=== PATIENT | male | born 1985 | race African-American/Black ===

== ENCOUNTER 2022-05-03 12:15 | Inpatient (IN) | payer OTHER ==
[2022-05-03 14:11] VITALS: BMI 24.3
[2022-05-03] MEDS ORDERED: LOPERAMIDE HCL 2 MG CAPSULE PO PRN ×2 (18:58→21:09)
[2022-05-03] MEDS ORDERED: ACETAMINOPHEN 325 MG TABLET (FP) PO PRN (18:58)
[2022-05-03] MEDS ORDERED: MAG HYDROX/AL HYDROX/SIMETH 30 ML UNIT-DOSE CUP PO PRN ×2 (18:58→21:09)
[2022-05-03] MEDS ORDERED: MAGNESIUM CITRATE 300 ML BOTTLE PO PRN ×2 (18:58→21:09)
[2022-05-03] MEDS ORDERED: guaiFENesin 200 MG/10 ML 10 ML UNIT-DOSE CUPS PO PRN ×2 (18:58→21:09)
[2022-05-03] MEDS ORDERED: IBUPROFEN 400 MG TABLET (FP) PO PRN (18:58)
[2022-05-03] MEDS ORDERED: hydrOXYzine PAMOATE 25 MG CAPSULE (FP) PO PRN ×2 (18:58→21:09)
[2022-05-03] MEDS ORDERED: MAGNESIUM HYDROX 2400MG/30ML ORAL SUSPENSION 30 ML CUP PO PRN ×2 (18:58→21:09)
[2022-05-03] MEDS ORDERED: P-EPHED 60MG/TRIPROLIDI 2.5MG TABLET PO PRN ×2 (18:58→21:09)
[2022-05-03] MEDS ORDERED: NICOTINE POLACRILEX 2 MG GUM BC PRN (21:09)
[2022-05-03] MEDS ORDERED: MELATONIN 5 MG TABLETS PO SCH (22:00)
[2022-05-03] MEDS ORDERED: THIAMINE HCL 100 MG TABLET (FP) PO SCH (22:00)
[2022-05-04] MEDS ORDERED: TUBERCULIN PPD 5 TU/0.1ML VIAL ID ONE (01:04)
[2022-05-04] MEDS: IBUPROFEN 400 MG TABLET (FP) PO PRN ×2 (06:51→23:34)
[2022-05-04] MEDS ORDERED: PRENATAL VITAMINS W/ FOLIC ACID TABLET (FP) PO SCH (10:00)
[2022-05-04] MEDS ORDERED: DOXYCYCLINE HYCLATE 100 MG CAPSULE PO SCH (10:00)
[2022-05-04] MEDS: DOXYCYCLINE HYCLATE 100 MG CAPSULE PO SCH ×2 (10:48→17:34)
[2022-05-04] MEDS: PRENATAL VITAMINS W/ FOLIC ACID TABLET (FP) PO SCH (10:48)
[2022-05-04] MEDS: NICOTINE 14 MG/24 HOURS TOPICAL PATCH TD SCH (10:49)
[2022-05-04 13:21] LABS: URINE APPEARANCE CLEAR; URINE BILIRUBIN NEGATIVE (NEGATIVE); URINE COLOR YELLOW; URINE GLUCOSE (UA) NEGATIVE (NEGATIVE); URINE KETONE NEGATIVE (NEGATIVE); URINE LEUK ESTERASE NEGATIVE (NEGATIVE); URINE NITRITE NEGATIVE (NEGATIVE); URINE PROTEIN NEGATIVE (NEGATIVE); URINE UROBILINOGEN 0.2 mg/dL (0.2-1.0)
[2022-05-04 13:32] LABS: CALCIUM 8.8 mg/dL (8.5-10.1)
[2022-05-04 13:33] LABS: ALBUMIN 3.1 g/dl (3.4-5.0); BLOOD UREA NITROGEN 17.3 mg/dL (7-18)
[2022-05-04 13:36] LABS: CREATININE 1.1 mg/dL (0.55-1.3)
[2022-05-04 13:38] LABS: BILIRUBIN,TOTAL 0.3 mg/dL (0.2-1); TOT PROT 6.3 g/dl (6.4-8.2)
[2022-05-04 13:38] LABS: HEMATOCRIT 40.5 % (35.4-49); HEMOGLOBIN 13.2 GM/dL (11.7-16.9); MCHC 32.6 g/dl (32.0-35.9); MEAN CELL VOLUME 85.7 fl (80-96); MEAN PLT VOLUME 9.4 fl (7.5-11.1); PLATELET COUNT 267 10^3/uL (134-434); RBC 4.72 M/mm3 (4.00-5.60); RDW 14.5 % (11.9-15.9); WHITE BLOOD COUNT 9.7 K/mm3 (4.0-10.0)
[2022-05-04 13:52] LABS: SYPHILIS W/ RPR CONF NON-REACTIVE (NONREACTIVE)
[2022-05-04 14:24] LABS: HIV INTERPRETATION NEGATIVE (NEGATIVE)
[2022-05-04] MEDS: THIAMINE HCL 100 MG TABLET (FP) PO SCH ×2 (22:12)
[2022-05-04] MEDS: MELATONIN 5 MG TABLETS PO SCH ×2 (22:12)
[2022-05-05] MEDS: PRENATAL VITAMINS W/ FOLIC ACID TABLET (FP) PO SCH (10:19)
[2022-05-05] MEDS: DOXYCYCLINE HYCLATE 100 MG CAPSULE PO SCH ×2 (10:19→18:23)
[2022-05-05] MEDS: NICOTINE 14 MG/24 HOURS TOPICAL PATCH TD SCH (10:21)
[2022-05-05] MEDS: BACITRACIN 15 GM TUBE TOPICAL OINTMENT TP SCH (21:22)
[2022-05-05] MEDS: THIAMINE HCL 100 MG TABLET (FP) PO SCH (21:23)
[2022-05-05] MEDS: MELATONIN 5 MG TABLETS PO SCH (21:23)
[2022-05-06] MEDS: BACITRACIN 15 GM TUBE TOPICAL OINTMENT TP SCH ×2 (09:58→21:23)
[2022-05-06] MEDS: PRENATAL VITAMINS W/ FOLIC ACID TABLET (FP) PO SCH (09:58)
[2022-05-06] MEDS: DOXYCYCLINE HYCLATE 100 MG CAPSULE PO SCH ×2 (09:58→17:24)
[2022-05-06] MEDS: NICOTINE 14 MG/24 HOURS TOPICAL PATCH TD SCH (10:06)
[2022-05-06 14:14] LABS: BASO % 0.3 % (0-2.0); EOS % 6.8 % (0-4.5); HEMATOCRIT 41.9 % (35.4-49); HEMOGLOBIN 13.9 GM/dL (11.7-16.9); LYMPH % 27.6 % (8-40); MCH 28.2 pg (25.7-33.7); MCHC 33.2 g/dl (32.0-35.9); MEAN CELL VOLUME 84.8 fl (80-96); MEAN PLT VOLUME 8.9 fl (7.5-11.1); MONO % 4.8 % (3.8-10.2); NEUT % 60.5 % (42.8-82.8); PLATELET COUNT 281 10^3/uL (134-434); RBC 4.94 M/mm3 (4.00-5.60); RDW 14.7 % (11.9-15.9); WHITE BLOOD COUNT 10.4 K/mm3 (4.0-10.0)
[2022-05-06] MEDS: THIAMINE HCL 100 MG TABLET (FP) PO SCH (21:23)
[2022-05-06] MEDS: MELATONIN 5 MG TABLETS PO SCH (21:23)
[2022-05-06] MEDS: IBUPROFEN 400 MG TABLET (FP) PO PRN (23:18)
[2022-05-07] MEDS: PRENATAL VITAMINS W/ FOLIC ACID TABLET (FP) PO SCH (10:27)
[2022-05-07] MEDS: BACITRACIN 15 GM TUBE TOPICAL OINTMENT TP SCH ×2 (10:27→21:13)
[2022-05-07] MEDS: DOXYCYCLINE HYCLATE 100 MG CAPSULE PO SCH (10:27)
[2022-05-07] MEDS: NICOTINE 14 MG/24 HOURS TOPICAL PATCH TD SCH (10:27)
[2022-05-07] MEDS: DOXYCYCLINE HYCLATE 100 MG TABLET PO SCH (17:25)
[2022-05-07] MEDS: THIAMINE HCL 100 MG TABLET (FP) PO SCH (21:13)
[2022-05-07] MEDS: MELATONIN 5 MG TABLETS PO SCH (21:13)
[2022-05-08] MEDS: PRENATAL VITAMINS W/ FOLIC ACID TABLET (FP) PO SCH (10:27)
[2022-05-08] MEDS: BACITRACIN 15 GM TUBE TOPICAL OINTMENT TP SCH ×2 (10:28→21:13)
[2022-05-08] MEDS: NICOTINE 14 MG/24 HOURS TOPICAL PATCH TD SCH (10:28)
[2022-05-08] MEDS: DOXYCYCLINE HYCLATE 100 MG TABLET PO SCH ×2 (10:28→17:00)
[2022-05-08] MEDS: MELATONIN 5 MG TABLETS PO SCH (21:13)
[2022-05-08] MEDS: THIAMINE HCL 100 MG TABLET (FP) PO SCH (21:13)
[2022-05-09] MEDS: PRENATAL VITAMINS W/ FOLIC ACID TABLET (FP) PO SCH (10:20)
[2022-05-09] MEDS: BACITRACIN 15 GM TUBE TOPICAL OINTMENT TP SCH ×2 (10:21→21:37)
[2022-05-09] MEDS: NICOTINE 14 MG/24 HOURS TOPICAL PATCH TD SCH (10:21)
[2022-05-09] MEDS: DOXYCYCLINE HYCLATE 100 MG TABLET PO SCH ×2 (10:21→21:36)
[2022-05-09] MEDS: THIAMINE HCL 100 MG TABLET (FP) PO SCH (21:35)
[2022-05-09] MEDS: MELATONIN 5 MG TABLETS PO SCH (21:35)
[2022-05-10] MEDS: PRENATAL VITAMINS W/ FOLIC ACID TABLET (FP) PO SCH (09:52)
[2022-05-10] MEDS: NICOTINE 14 MG/24 HOURS TOPICAL PATCH TD SCH (09:52)
[2022-05-10] MEDS: DOXYCYCLINE HYCLATE 100 MG TABLET PO SCH ×2 (09:54→16:55)
[2022-05-10] MEDS: BACITRACIN 15 GM TUBE TOPICAL OINTMENT TP SCH ×2 (09:55→21:55)
[2022-05-10] MEDS: IBUPROFEN 400 MG TABLET (FP) PO PRN (09:55)
[2022-05-10] MEDS: MELATONIN 5 MG TABLETS PO SCH (21:55)
[2022-05-10] MEDS: THIAMINE HCL 100 MG TABLET (FP) PO SCH (21:55)
[2022-05-11] MEDS: PRENATAL VITAMINS W/ FOLIC ACID TABLET (FP) PO SCH (10:18)
[2022-05-11] MEDS: DOXYCYCLINE HYCLATE 100 MG TABLET PO SCH ×2 (10:19→17:34)
[2022-05-11] MEDS: NICOTINE 14 MG/24 HOURS TOPICAL PATCH TD SCH (10:19)
[2022-05-11] MEDS: IBUPROFEN 400 MG TABLET (FP) PO PRN ×2 (10:20→21:52)
[2022-05-11] MEDS: BACITRACIN 15 GM TUBE TOPICAL OINTMENT TP SCH ×2 (10:21→21:15)
[2022-05-11] MEDS: NICOTINE 10 MG CARTRIDGE (INHALER) IH PRN (10:59)
[2022-05-11] MEDS: THIAMINE HCL 100 MG TABLET (FP) PO SCH (21:15)
[2022-05-11] MEDS: MELATONIN 5 MG TABLETS PO SCH (21:15)
[2022-05-12] MEDS: IBUPROFEN 400 MG TABLET (FP) PO PRN ×2 (06:40→14:25)
[2022-05-12 07:02] VITALS: PULSE 75; RESP 18
[2022-05-12] MEDS: NICOTINE 14 MG/24 HOURS TOPICAL PATCH TD SCH (10:37)
[2022-05-12] MEDS: PRENATAL VITAMINS W/ FOLIC ACID TABLET (FP) PO SCH (10:37)
[2022-05-12] MEDS: BACITRACIN 15 GM TUBE TOPICAL OINTMENT TP SCH ×2 (10:37→21:19)
[2022-05-12] MEDS: NICOTINE 10 MG CARTRIDGE (INHALER) IH PRN (10:38)
[2022-05-12] MEDS: ACETAMINOPHEN 325 MG TABLET (FP) PO PRN (10:42)
[2022-05-12] MEDS: IBUPROFEN 600 MG TABLET (FP) PO PRN (19:01)
[2022-05-12] MEDS: THIAMINE HCL 100 MG TABLET (FP) PO SCH (21:18)
[2022-05-12] MEDS: MELATONIN 5 MG TABLETS PO SCH (21:18)
[2022-05-13] MEDS: IBUPROFEN 600 MG TABLET (FP) PO PRN ×3 (06:04→19:55)
[2022-05-13] MEDS: PRENATAL VITAMINS W/ FOLIC ACID TABLET (FP) PO SCH (11:00)
[2022-05-13] MEDS: NICOTINE 14 MG/24 HOURS TOPICAL PATCH TD SCH (11:00)
[2022-05-13] MEDS: BACITRACIN 15 GM TUBE TOPICAL OINTMENT TP SCH ×2 (11:00→21:38)
[2022-05-13] MEDS: ACETAMINOPHEN 325 MG TABLET (FP) PO PRN ×2 (11:01→23:28)
[2022-05-13] MEDS: LIDOCAINE VISCOUS 2% ORAL/TOP 15 ML UNIT-DOSE CUP MM PRN ×3 (11:02→23:28)
[2022-05-13] MEDS: THIAMINE HCL 100 MG TABLET (FP) PO SCH (21:37)
[2022-05-13] MEDS: MELATONIN 5 MG TABLETS PO SCH (21:37)
[2022-05-14] MEDS: LIDOCAINE VISCOUS 2% ORAL/TOP 15 ML UNIT-DOSE CUP MM PRN ×3 (02:49→23:44)
[2022-05-14] MEDS ORDERED: IBUPROFEN 400 MG TABLET (FP) PO ONE ×3 (02:50→14:00)
[2022-05-14] MEDS: IBUPROFEN 600 MG TABLET (FP) PO PRN ×2 (08:42→19:29)
[2022-05-14] MEDS: BACITRACIN 15 GM TUBE TOPICAL OINTMENT TP SCH ×2 (09:33→21:34)
[2022-05-14] MEDS: PRENATAL VITAMINS W/ FOLIC ACID TABLET (FP) PO SCH (09:33)
[2022-05-14] MEDS: NICOTINE 14 MG/24 HOURS TOPICAL PATCH TD SCH (09:33)
[2022-05-14] MEDS: MELATONIN 5 MG TABLETS PO SCH (21:34)
[2022-05-14] MEDS: THIAMINE HCL 100 MG TABLET (FP) PO SCH (21:34)
[2022-05-14] MEDS: ACETAMINOPHEN 325 MG TABLET (FP) PO PRN (23:40)
[2022-05-15] MEDS: IBUPROFEN 600 MG TABLET (FP) PO PRN ×2 (08:29→18:44)
[2022-05-15] MEDS: NICOTINE 14 MG/24 HOURS TOPICAL PATCH TD SCH (09:21)
[2022-05-15] MEDS: BACITRACIN 15 GM TUBE TOPICAL OINTMENT TP SCH ×2 (09:21→21:26)
[2022-05-15] MEDS: PRENATAL VITAMINS W/ FOLIC ACID TABLET (FP) PO SCH (09:21)
[2022-05-15] MEDS: ACETAMINOPHEN 325 MG TABLET (FP) PO PRN ×3 (09:58→22:53)
[2022-05-15] MEDS: LIDOCAINE VISCOUS 2% ORAL/TOP 15 ML UNIT-DOSE CUP MM PRN (09:59)
[2022-05-15] MEDS: THIAMINE HCL 100 MG TABLET (FP) PO SCH (21:26)
[2022-05-15] MEDS: MELATONIN 5 MG TABLETS PO SCH (21:27)
[2022-05-16] MEDS: IBUPROFEN 600 MG TABLET (FP) PO PRN ×3 (01:53→13:02)
[2022-05-16 07:03] VITALS: BP 117/78; TEMP 97.7
[2022-05-16] MEDS: ACETAMINOPHEN 325 MG TABLET (FP) PO PRN (07:03)
[2022-05-16] MEDS: PRENATAL VITAMINS W/ FOLIC ACID TABLET (FP) PO SCH (13:04)
[2022-05-16] MEDS: BACITRACIN 15 GM TUBE TOPICAL OINTMENT TP SCH ×2 (13:16→21:15)
[2022-05-16] MEDS: NICOTINE 14 MG/24 HOURS TOPICAL PATCH TD SCH (13:16)
[2022-05-16] MEDS: MELATONIN 5 MG TABLETS PO SCH (21:14)
[2022-05-16] MEDS: THIAMINE HCL 100 MG TABLET (FP) PO SCH (21:14)
[2022-05-17] MEDS: IBUPROFEN 600 MG TABLET (FP) PO PRN ×2 (07:25→12:55)
[2022-05-17] MEDS: PRENATAL VITAMINS W/ FOLIC ACID TABLET (FP) PO SCH (10:40)
[2022-05-17] MEDS: BACITRACIN 15 GM TUBE TOPICAL OINTMENT TP SCH (10:42)
[2022-05-17] MEDS: NICOTINE 14 MG/24 HOURS TOPICAL PATCH TD SCH (10:42)
== END 2022-05-17 13:48 | disposition left against medical advice (07) | DRG 770 ==
LOC: YASAS 12:15 → Y3W 23:39
PROVIDERS: ADMIT Allergy & Immunology; ATTEND Psychiatry & Neurology Pain Medicine
PROC: HZ42ZZZ Group Counseling for Substance Abuse Treatment, Cognitive-Behavioral (ICD-10-PCS; principal; 2022-05-03)
DX: F14.20 Cocaine dependence, uncomplicated (principal); F20.9 Schizophrenia, unspecified; F31.9 Bipolar disorder, unspecified; N45.2 Orchitis; K08.89 Other specified disorders of teeth and supporting structures; R26.89 Other abnormalities of gait and mobility; F91.8 Other conduct disorders; Z91.199 Patient's noncompliance with other medical treatment and regimen due to unspecified reason
CPT/HCPCS: 36415; 80053; 81003; 83036; 85025; 85027; 86780; 86803; 87389; 87491; 87591; 87661; 87811; 93005; 93010; C9803-CS; U0003; U0005